=== PATIENT | male | born 1955 | race African-American/Black ===

== ENCOUNTER 2019-03-13 21:20 | Inpatient (IN) | payer MEDICARE, OTHER ==
--- NOTE | 2019-03-13 21:36 | ER Document Report ---
ED General - General Chief Complaint: Respiratory Distress Stated Complaint: RESPIRATORY DISTRESS Time Seen by Provider: 03/13/19 21:33 Primary Care Provider: KAVYA ROWLAND DOC [NO LOCAL MD] - Follow up as needed Information source: Patient TRAVEL OUTSIDE OF THE [place] IN LAST 30 DAYS: No - Related Data Allergies/Adverse Reactions: No Known Allergies Allergy (Unverified 03/13/19 21:38) Past Medical History - Social History Smoking Status: Current Every Day Smoker Family History: Reviewed & Not Pertinent Physical Exam - Vital signs Vitals: Resp Pulse Ox 20 100 03/13/19 21:20 03/13/19 21:20 Interpretation: Hypertensive - Notes Notes: Reported by paramedics with a complaint of shortness of breath is been going on for the past several days he is a nonproductive cough but no fevers chest pain nausea vomiting or abdominal pain. He has been compliant with medications through his family doctor about 3 weeks ago and blood pressure was elevated and increase his medications. When medics arrived he was in atrial fibrillation with rapid ventricular rate and a markedly elevated blood pressure. Given sublingual nitroglycerin and on a nitroglycerin drip with improvement of his blood pressure so they stopped the drip. However on arrival in emergency department blood pressure still elevated. Is currently on CPAP much more comfortable. They report his O2 sats were 88% in the field however later during hospital stay patient reports that he has had a cough productive of yellow sputum with occasional blood specks for the past week he is also had some orthopnea Past medical history sent for hypertension and CHF he has no coronary artery disease or elevated cholesterol social history does smoke and drink Review of systems pertinent positives and negatives in HPI otherwise all the systems were reviewed and acutely negative PHYSICIAN EXAM -vital signs are noted triage note and note from triage reviewed GENERAL: Well-appearing, well-nourished and in __no acute distress actually looks very comfortable right now is able to talk in full sentences____ HEAD: Atraumatic, normocephalic. EYES: Pupils equal round and reactive to light, extraocular movements intact, sclera anicteric, conjunctiva are normal. ENT: nares patent, oropharynx clear without exudates. Moist mucous membranes. NECK: supple without lymphadenopathy LUNGS: Breath sounds revealed crackles to the apices. HEART: Rapid and irregular he does have JVD at 30 degrees ABDOMEN: Soft, nontender, normoactive bowel sounds. EXTREMITIES: No deformity, +3 edema to the knees with no palpable cords NEUROLOGICAL: No focal neurological deficits. Moves all extremities spontaneously and on command. PSYCH: Normal mood, normal affect. SKIN: Warm, Dry, normal turgor, no rashes or lesions noted. BACK-nontender in the midline Differential diagnosis CHF hypertensive urgency ischemia Course - Re-evaluation Re-evalutation: 03/13/19 23:55 ED 03/14/19 01:38 ED we get the patient on a BiPAP. His blood pressure was markedly elevated and so he was started on nitroglycerin drip and titrated improvement of his blood pressure. He was given Lasix and enalapril for possible CHF. He did diurese about a liter of fluid and seem to be improving. Urine is x-ray blood cultures were obtained he was started on broad-spectrum antibiotics for possible pneumonia he had no episodes of chest pain. Been able to wean him off the BiPAP and placed him on nasal cannula his lungs have improved and is resting more comfortably. Heart rate is still tachycardic and still remains in atrial fibrillation 03/14/19 01:39 Medical decision making patient presents emerge department with shortness of breath clinically on arrival he appears to have CHF and he does have an elevated BNP however we do not have any old laboratory studies. However 6 x-ray appeared to be more consistent with pneumonia and reports a history of a productive cough with occasional specks of blood suggesting pneumonia. Patient was in acute respiratory failure on arrival has improved significantly but will need admission to the hospital. Consulted the ice rink attendant Dictate 1 dictation was done using voice recognition software. There may be some grammatical errors which are unintentional 03/14/19 01:51 Addendum patient has been seen by the ice rink attendant they report patient is markedly improved and feel the patient can probably be sent to a stepdown unit. Patient is only on 5 mcg of nitroglycerin glycerin but will attempt to stop the nitroglycerin to control his blood pressure with EILEEN inhibitor. I did reconsult the hospitalist and increased with the patient if his blood pressure remained stable - Vital Signs Vital signs: Temp Pulse Resp BP Pulse Ox 97.9 F 108 H 21 H 141/94 H 96 03/13/19 23:16 03/14/19 01:25 03/14/19 01:25 03/14/19 01:25 03/14/19 01:25 - Laboratory Result Diagrams: 03/13/19 21:35 03/13/19 21:35 Laboratory results interpreted by me: 03/13/19 03/13/19 03/13/19 21:35 21:35 21:35 RBC 4.24 L MCV 98 H RDW 14.6 H Creatinine 1.72 H Est GFR ( Amer) 49 L Est GFR (MDRD) Non-Af 40 L Glucose 156 H AST 62 H NT-Pro-B Natriuret Pep TSH 5.33 H Urine Protein Urine Urobilinogen Ur Leukocyte Esterase 03/13/19 03/13/19 21:35 22:25 RBC MCV RDW Creatinine Est GFR ( Amer) Est GFR (MDRD) Non-Af Glucose AST NT-Pro-B Natriuret Pep 2110 H TSH Urine Protein 30 H Urine Urobilinogen 4.0 H Ur Leukocyte Esterase MODERATE H Troponin was noted repeat troponin has decreased slightly. TSH was elevated but no old labs for comparison - Diagnostic Test Radiology reviewed: Reports reviewed Radiology results interpreted by me: 03/14/19 01:38 Reviewed the x-ray report. Appears to be more consistent with pneumonia than HF than CHF - EKG Interpretation by Me Additional EKG results interpreted by me: 03/13/19 23:55 Initial EKG read by me shows atrial fibrillation with rapid ventricular rate. There is a left axis deviation there is some baseline artifact as well as some LVH with strain. EKG still shows atrial fibrillation with rapid ventricular rate and LVH with strain QT interval is prolonged on both EKGs although EKGs for comparison Critical Care Note - Critical Care Note Total time excluding time spent on procedures (mins): 75 Comments: Patient presented with respiratory failure and severe hypertension. He was managed on BiPAP. With IV nitroglycerin and serial exams and multiple medical interventions Discharge - Discharge Clinical Impression: Hypertensive crisis, unspecified Respiratory failure Qualifiers: Chronicity: acute Respiratory failure complication: hypoxia Qualified Code(s): J96.01 - Acute respiratory failure with hypoxia Congestive heart failure Qualifiers: Heart failure type: unspecified Heart failure chronicity: acute on chronic Qualified Code(s): I50.9 - Heart failure, unspecified Pneumonia Qualifiers: Aspiration pneumonia type: unspecified Condition: Good Disposition: ADMITTED INPATIENT Admitting Provider: Antonia (Hospitalist) Unit Admitted: IMCU Referrals: [facility],SCREENING DOC [NO LOCAL MD] - Follow up as needed
[2019-03-13] MEDS ORDERED: ENALAPRILAT DIHYDRATE INJ/PF 1.25 MG/1 ML SDV IV ONE (21:44)
[2019-03-13] MEDS ORDERED: NITROGLYCERIN/D5W 50 MG/250 ML RTUINJ IV PRN (21:45)
[2019-03-13] MEDS ORDERED: FUROSEMIDE INJ/PF 20 MG/2 ML SDV IV ONE (21:46)
[2019-03-13 21:51] LABS: ABSOLUTE EOSINOPHILS # (AUTO) 0.2 10^3/uL (0.0-0.6); ABSOLUTE LYMPHOCYTES (AUTO) 1.2 10^3/uL (0.5-4.7); ABSOLUTE MONOCYTES (AUTO) 0.6 10^3/uL (0.1-1.4); ABSOLUTE NEUT (AUTO) 4.3 10^3/uL (1.7-8.2); BASOPHILS % (AUTO) 0.7 % (0-2); EOSINOPHILS % (AUTO) 2.9 % (0-6); HEMATOCRIT 41.5 % (37.9-51.0); LYMPHOCYTES % (AUTO) 18.4 % (13-45); MEAN CORPUSCULAR HEMOGLOBIN 33.1 pg (27.0-33.4); MEAN CORPUSCULAR HGB CONC 33.7 g/dL (32.0-36.0); MEAN CORPUSCULAR VOLUME 98 fl (80-97); MONOCYTES % (AUTO) 10.1 % (3-13); PLATELET COUNT 223 10^3/uL (150-450); RED BLOOD COUNT 4.24 10^6/uL (4.35-5.55); RED CELL DISTRIBUTION WIDTH 14.6 % (11.5-14.0); SEGMENTED NEUTROPHILS % (AUTO) 67.9 % (42-78); TOTAL CELLS COUNTED % (AUTO) 100 %; WHITE BLOOD COUNT 6.3 10^3/uL (4.0-10.5)
[2019-03-13 21:58] LABS: ALBUMIN 3.9 g/dL (3.5-5.0); ALKALINE PHOSPHATASE 75 U/L (38-126); ANION GAP 9 (5-19); ASPARTATE AMINO TRANSFERASE 62 U/L (17-59); BILIRUBIN,DIRECT 0.3 mg/dL (0.0-0.4); BILIRUBIN,TOTAL 0.9 mg/dL (0.2-1.3); BLOOD UREA NITROGEN 13 mg/dL (7-20); CALCIUM 9.8 mg/dL (8.4-10.2); CARBON DIOXIDE 28 mmol/L (22-30); CHLORIDE 104 mmol/L (98-107); GLUCOSE 156 mg/dL (75-110); POTASSIUM 4.3 mmol/L (3.6-5.0); TOTAL PROTEIN 6.8 g/dL (6.3-8.2)
--- NOTE | 2019-03-13 22:45 | RADIOLOGY REPORT (SQ) ---
EXAM DESCRIPTION: XR CHEST 1 VIEW COMPLETED DATE/TME: 03/13/2019 21:38 CLINICAL HISTORY: 63 years, Male, short of breath COMPARISON: None. NUMBER OF VIEWS: 1 TECHNIQUE: Portable chest LIMITATIONS: None. FINDINGS: Cardiomegaly. Patchy bibasilar airspace opacities. No pneumothorax IMPRESSION: Bibasilar infiltrates copyright 2010 [employer] [facility] [employer]- All Rights Reserved
[2019-03-13 22:50] LABS: APPEARANCE,URINE CLEAR; BILIRUBIN,URINE NEGATIVE (NEGATIVE); COLOR,URINE YELLOW; GLUCOSE, URINE NEGATIVE (NEGATIVE); KETONES,URINE NEGATIVE (NEGATIVE); LEUKOCYTE ESTERASE,URINE MODERATE (NEGATIVE); NITRITE,URINE NEGATIVE (NEGATIVE); PROTEIN,URINE 30 mg/dL (NEGATIVE); URINE SPECIFIC GRAVITY 1.008
[2019-03-13] MEDS ORDERED: ACETAMINOPHEN 325 MG TABLET PO ONE (23:10)
[2019-03-13] MEDS ORDERED: AZITHROMYCIN INJ 500 MG VIAL IV ONE (23:27)
[2019-03-13] MEDS ORDERED: CEFTRIAXONE INJ 1000 MG VIAL IV ONE (23:27)
[2019-03-14] MEDS ORDERED: NITROGLYCERIN 2% OINTMENT 1 GM PACKET TP ONE ×2 (01:42→01:47)
[2019-03-14] MEDS ORDERED: ENALAPRILAT DIHYDRATE INJ/PF 1.25 MG/1 ML SDV IV ONE ×2 (01:51→01:53)
[2019-03-14] MEDS ORDERED: APIXABAN 5 MG TABLET PO ONE ×2 (02:02→02:06)
[2019-03-14] MEDS ORDERED: APIXABAN 5 MG TABLET ONE (02:25)
[2019-03-14] MEDS ORDERED: MAG HYDROX/AL HYDROX/SIMETH SUSP 30 ML UDCUP PO PRN (02:41)
[2019-03-14] MEDS ORDERED: MAGNESIUM HYDROXIDE SUSP 30 ML UDCUP PO PRN (02:41)
[2019-03-14] MEDS ORDERED: PROMETHAZINE HCL INJ 25 MG/1 ML VIAL IV PRN (02:41)
[2019-03-14] MEDS ORDERED: MORPHINE SULFATE 10 MG/ML INJ IV PRN (02:49)
[2019-03-14] MEDS ORDERED: HYDRALAZINE HCL INJ/PF 20 MG/1 ML SDV IV PRN (02:49)
[2019-03-14] MEDS ORDERED: ACETAMINOPHEN 325 MG TABLET PO PRN (02:49)
[2019-03-14] MEDS ORDERED: LEVALBUTEROL HCL NEB 0.63 MG/3 ML AMPUL NEB PRN (02:49)
[2019-03-14] MEDS ORDERED: NICOTINE 21 MG/24 HR PATCH.TD24 TD PRN (02:49)
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
[2019-03-14 05:33] LABS: CHOLESTEROL 138.12 mg/dL (0-200); TRIGLYCERIDES 76 mg/dL (<150)
[2019-03-14] MEDS: PANTOPRAZOLE SODIUM 40 MG TABLET.DR PO SCH (05:34)
[2019-03-14] MEDS: NITROGLYCERIN 2% OINTMENT 1 GM PACKET TP SCH ×4 (05:34→23:24)
[2019-03-14] MEDS: BUMETANIDE INJ/PF 1 MG/4 ML SDV IV SCH ×3 (05:34→17:18)
[2019-03-14 05:46] LABS: DIRECT LDL 95 mg/dL (<100)
[2019-03-14 05:47] LABS: CREATINE KINASE MB 4.21 ng/mL (<4.55)
[2019-03-14 05:51] LABS: TROPONIN I 0.057 ng/mL
[2019-03-14] MEDS ORDERED: HEPARIN SOD (PORCINE) 5,000 UNIT/ML 1 ML VIAL SUBCUT SCH (06:00)
--- NOTE | 2019-03-14 06:23 | PDOC CONSULTATION ---
Consultation Consult Date: 03/14/19 Provider Consulted: SUSANA EUBANKS Consult reason:: Hypertension, CHF exacerbation History of Present Illness Admission Date/PCP: 03/13/19 History of Present Illness: Mr Mcdermott is a very pleasant 63yr old AA male with PMH of HTN and CHF who reports SOB with productive cough that began 3-4 days ago and has been progressively getting worse. Pt reports a mechanical fall while reaching from t he shower to get his phone greater than a week ago and believes this is when his cough started; states he slipped while reaching for his phone and denies CP/dizziness/BEE or any other symptoms related to the fall. He indicated pain to his left flank that has since improved. Pt states he has had a productive cough since his fall and the SOB and productive cough has worsened since then. Pt states he takes antihypertensives and lasix and states he has not missed any doses of medications, but does report that he had a "very salty" Thanksgiving meal 3 days ago. He states he regularly has swelling in his BLE and he will elevate his legs at night which will resolve the edema by morning. He stated he began feeling worse today and decided to call 911; denies CP/palpitations/BEE/numbness/fever/N/V/abd pain or any other associated symptoms. Per ED reports, medics arrived to find pts BP >200 systolic and started him on a nitro gtt and gave a SL nitro with improvement. Nitro was stopped in the field and then restarted in the ED when he was reported to be elevated on arrival. Pt was noted to be in Afib in the ED without reported history of Afib or irregular rhythm, he was started on Eliquis by ED based on CHADS risk. ICU was consulted for concerns with CHF exacerbation and HTN on nitro gtt. Past Medical History Cardiac Medical History: Reports: Congestive Heart Failure, Hypertension Denies: Atrial Fibrillation, Coronary Artery Disease, Myocardial Infarction Pulmonary Medical History: Denies: Asthma, Chronic Obstructive Pulmonary Disease (COPD), Respiratory Failure EENT Medical History: Denies: Cataracts, Ears - Hearing aids Neurological Medical History: Denies: Hemorrhagic CVA, Ischemic CVA, Seizures Endocrine Medical History: Reports: Obesity Denies: Diabetes Mellitus Type 1, Diabetes Mellitus Type 2, Hyperthyroidism, Hypothyroidism Renal/ Medical History: Denies: Chronic Kidney Disease, Nephrolithiasis Malignancy Medical History: Reports: None GI Medical History: Denies: Cirrhosis, Crohn's Disease, Hepatitis, Ulcerative Colitis Musculoskeltal Medical History: Denies: Arthritis, Gout Skin Medical History: Denies: Eczema, Psoriasis Psychiatric Medical History: Reports: Tobacco Dependency Denies: Alcohol Dependency, Substance Abuse Traumatic Medical History: Reports: None Hematology: Denies: Anemia, Bleeding Tendencies Infectious Medical History: Reports: None Social History Lives with: Spouse/Significant other Smoking Status: Current Every Day Smoker Electronic Cigarette use?: No Frequency of Alcohol Use: Occasional Hx Recreational Drug Use: No Drugs: None Hx Prescription Drug Abuse: No - Advance Directive Resuscitation Status: Full Code Family History Family History: denies: CAD, DM, Hypertension, Malignancy Parental Family History Reviewed: No Children Family History Reviewed: No Sibling(s) Family History Reviewed.: No Medication/Allergy Home Medications: Amlodipine Besylate [Norvasc 10 mg Tablet] 10 mg PO BID 03/14/19 Clonidine HCl [Catapres 0.2 mg Tablet] 0.2 mg PO BID 03/14/19 Lisinopril 20 mg PO DAILY 03/14/19 Allergies/Adverse Reactions: No Known Allergies Allergy (Unverified 03/13/19 21:38) Review of Systems All systems: as per PMH Physical Exam Vital Signs: Temp Pulse Resp BP Pulse Ox 97.9 F 108 H 21 H 151/106 H 97 03/14/19 01:46 03/14/19 01:25 03/14/19 01:46 03/14/19 01:46 03/14/19 01:46 Intake & Output 03/12/19 03/13/19 03/14/19 06:59 06:59 06:59 Intake Total 25 Output Total 1650 Balance -1625 Weight 111.13 kg General appearance: PRESENT: no acute distress, cooperative, obese, well- nourished Head exam: PRESENT: atraumatic, normocephalic Eye exam: PRESENT: conjunctiva pink Ear exam: PRESENT: normal external ear exam Mouth exam: PRESENT: moist Neck exam: ABSENT: tracheal deviation Respiratory exam: PRESENT: crackles - bilateral to apices. ABSENT: wheezes Cardiovascular exam: PRESENT: irregular rhythm, +S1, +S2 Pulses: PRESENT: normal radial pulses GI/Abdominal exam: PRESENT: normal bowel sounds, soft. ABSENT: distended, tenderness Extremities exam: PRESENT: other - +3 BLE to knees Neurological exam: PRESENT: alert, oriented to person, oriented to place, oriented to time, oriented to situation, CN II-XII grossly intact Psychiatric exam: PRESENT: appropriate affect Skin exam: PRESENT: dry, warm Results Laboratory Results: 03/13/19 21:35 03/13/19 21:35 03/13/19 03/13/19 03/13/19 21:35 21:35 21:35 WBC 6.3 RBC 4.24 L Hgb 14.0 Hct 41.5 MCV 98 H MCH 33.1 MCHC 33.7 RDW 14.6 H Plt Count 223 Seg Neutrophils % 67.9 Sodium 140.6 Potassium 4.3 Chloride 104 Carbon Dioxide 28 Anion Gap 9 BUN 13 Creatinine 1.72 H Est GFR ( Amer) 49 L Glucose 156 H Calcium 9.8 Total Bilirubin 0.9 AST 62 H Alkaline Phosphatase 75 Total Protein 6.8 Albumin 3.9 TSH 5.33 H Urine Color Urine Appearance Urine pH Ur Specific [place] Urine Protein Urine Glucose (UA) Urine Ketones Urine Blood Urine Nitrite Ur Leukocyte Esterase Urine WBC (Auto) Urine RBC (Auto) 03/13/19 22:25 WBC RBC Hgb Hct MCV MCH MCHC RDW Plt Count Seg Neutrophils % Sodium Potassium Chloride Carbon Dioxide Anion Gap BUN Creatinine Est GFR ( Amer) Glucose Calcium Total Bilirubin AST Alkaline Phosphatase Total Protein Albumin TSH Urine Color YELLOW Urine Appearance CLEAR Urine pH 7.0 Ur Specific [place] 1.008 Urine Protein 30 H Urine Glucose (UA) NEGATIVE Urine Ketones NEGATIVE Urine Blood NEGATIVE Urine Nitrite NEGATIVE Ur Leukocyte Esterase MODERATE H Urine WBC (Auto) 5 Urine RBC (Auto) 0 03/13/19 03/13/19 03/13/19 21:35 21:35 23:52 Troponin I 0.057 Cancelled 0.056 NT-Pro-B Natriuret Pep 2110 H Impressions: Chest X-Ray 03/13/19 21:38 IMPRESSION: Bibasilar infiltrates copyright 2011 [employer]- All Rights Reserved Assessment & Plan - Diagnosis (1) Hypertensive crisis, unspecified Is this a current diagnosis for this admission?: Yes Plan: Hold nitro gtt and transition to scheduled as well as PRN antihypertensives with goal to reduce MAP no more than 20-25% or to maintain BP 140-160 to avoid acute drop on BP (2) Acute on chronic diastolic congestive heart failure Is this a current diagnosis for this admission?: Yes Plan: Obtain echo Consider cardiology consult as 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 Continue gentle diuresis as labs allow (3) New onset atrial fibrillation Is this a current diagnosis for this admission?: Yes Plan: Consider rate controlling medication if needed - adjust BP meds as indicated Cardiology consult Started on Eliquis by ED - pt education needed (4) Acute respiratory failure with hypoxia Is this a current diagnosis for this admission?: Yes Plan: Likely secondary to CHF exacerbation and fall reported by pt Received abx in ED for possible PNA - WBC stable and lactate negative, VS stable - consider holding ABX or obtain sputum culture repeat chest Xray in the AM to monitor for progression O2 as needed to maintain sats >89% (5) Elevated troponin Plan: Likely demand mediated - has remained stable on follow up labs EKG stable without indication of acute concerns (6) Elevated TSH Is this a current diagnosis for this admission?: Yes Plan: Follow up with T4/T3 (7) Elevated serum glucose Is this a current diagnosis for this admission?: Yes Plan: Obtain HgA1C Trend labs to determine severity - Time Time Spent with patient: 30min Total Critical Time (Minutes): 30 Disposition: Pt does meet criteria for ICU admission at this time. Please call if anything changes acutely or there is any need for assistance. Thank you - Plan Summary Plan Summary: Pt does not meet criteria for ICU admission at this time, please call if his condition worsens.
[2019-03-14] MEDS: BUDESONIDE NEB 0.5 MG/2 ML AMPUL NEB SCH ×2 (08:34→20:22)
[2019-03-14] MEDS: LEVALBUTEROL HCL NEB 1.25 MG/3 ML AMPUL NEB SCH ×3 (08:34→23:50)
[2019-03-14] MEDS: IPRATROPIUM BROMIDE 0.02% NEB 0.5 MG/2.5 ML AMPUL NEB SCH ×3 (08:34→23:50)
[2019-03-14] MEDS ORDERED: DILTIAZEM HCL INJ 25 MG/5 ML VIAL IV PRN (09:05)
[2019-03-14] MEDS ORDERED: DILTIAZEM HCL 30 MG TABLET PO ONE (09:30)
[2019-03-14] MEDS ORDERED: CLOPIDOGREL BISULFATE 75 MG TABLET PO SCH (10:00)
[2019-03-14] MEDS ORDERED: METOPROLOL SUCCINATE 50 MG TAB.SR.24H PO SCH (10:00)
[2019-03-14] MEDS ORDERED: METOPROLOL TARTRATE 50 MG TABLET PO SCH (10:00)
[2019-03-14] MEDS ORDERED: DOCUSATE SODIUM 100 MG CAPSULE PO SCH (10:00)
[2019-03-14] MEDS: LOSARTAN POTASSIUM 50 MG TABLET PO SCH ×2 (10:15→21:45)
[2019-03-14] MEDS: LEVOFLOXACIN 750 MG TABLET PO SCH (10:15)
[2019-03-14] MEDS: APIXABAN 5 MG TABLET PO SCH ×2 (10:16→17:17)
[2019-03-14 11:00] LABS: CREATINE KINASE MB 4.32 ng/mL (<4.55); TROPONIN I 0.053 ng/mL
[2019-03-14] MEDS ORDERED: DILTIAZEM HCL 30 MG TABLET PO SCH (12:00)
--- NOTE | 2019-03-14 12:24 | EKG REPORT ---
SEVERITY:- ABNORMAL ECG - ATRIAL FIBRILLATION, V-RATE 88-150 PROBABLE LVH WITH SECONDARY REPOL ABNRM BORDERLINE PROLONGED QT INTERVAL : Confirmed by: Liliana Conrad 14-Mar-2019 12:23:50
--- NOTE | 2019-03-14 12:24 | EKG REPORT ---
SEVERITY:- ABNORMAL ECG - ATRIAL FIBRILLATION, V-RATE 72-127 PAIRED VENTRICULAR PREMATURE COMPLEXES LEFT AXIS DEVIATION LVH WITH SECONDARY REPOLARIZATION ABNORMALITY : Confirmed by: Liliana Conrad 14-Mar-2019 12:24:07
--- NOTE | 2019-03-14 15:41 | PDOC PROGRESS REPORT ---
Subjective Progress Note for:: 03/14/19 Subjective:: Patient is sitting in the chair resting comfortably. He does not appreciate any fast heart rate. His only complaint is that of constipation. Reason For Visit: ACUTE HYPERTENSIVE CRISIS, ACUTE ON CHRONIC Physical Exam Vital Signs: Temp Pulse Resp BP Pulse Ox 97.8 F 92 16 136/83 H 94 03/14/19 07:57 03/14/19 14:00 03/14/19 08:35 03/14/19 07:57 03/14/19 08:35 Intake & Output 03/13/19 03/14/19 03/15/19 06:59 06:59 06:59 Intake Total 610 Output Total 1650 Balance -1040 Weight 115.3 kg General appearance: PRESENT: no acute distress, cooperative, well-developed, other - Sitting comfortably in the chair with nasal cannula in place Head exam: PRESENT: atraumatic, normocephalic Eye exam: PRESENT: conjunctiva pink. ABSENT: scleral icterus Ear exam: PRESENT: normal external ear exam. ABSENT: bleeding, drainage Mouth exam: PRESENT: moist, tongue midline Teeth exam: PRESENT: poor dentation Respiratory exam: PRESENT: clear to auscultation howard, symmetrical, unlabored. ABSENT: rales, rhonchi, tachypnea, wheezes Cardiovascular exam: PRESENT: irregular rhythm, tachycardia GI/Abdominal exam: PRESENT: normal bowel sounds, soft. ABSENT: distended, tenderness Rectal exam: PRESENT: deferred Musculoskeletal exam: PRESENT: ambulatory, deformity - Left arm and hand. Congenital defect. Scars from multiple surgeries in the upper arm. Contracted fingers. Neurological exam: PRESENT: alert, awake, oriented to person, oriented to place, oriented to situation, CN II-XII grossly intact Psychiatric exam: PRESENT: appropriate affect, normal mood. ABSENT: agitated, anxious Focused psych exam: ABSENT: delusional, restlessness Skin exam: PRESENT: dry, warm, other - Slight ulcerated areas on the knuckles of the left hand. From pressure from the underlying bones.. ABSENT: rash Results Laboratory Results: 03/13/19 21:35 03/13/19 21:35 03/13/19 03/13/19 03/13/19 21:35 21:35 21:35 WBC 6.3 RBC 4.24 L Hgb 14.0 Hct 41.5 MCV 98 H MCH 33.1 MCHC 33.7 RDW 14.6 H Plt Count 223 Seg Neutrophils % 67.9 Sodium 140.6 Potassium 4.3 Chloride 104 Carbon Dioxide 28 Anion Gap 9 BUN 13 Creatinine 1.72 H Est GFR ( Amer) 49 L Glucose 156 H Calcium 9.8 Total Bilirubin 0.9 AST 62 H Alkaline Phosphatase 75 Total Protein 6.8 Albumin 3.9 Triglycerides Cholesterol LDL Cholesterol Direct VLDL Cholesterol HDL Cholesterol TSH 5.33 H Free T3 pg/mL Urine Color Urine Appearance Urine pH Ur Specific [place] Urine Protein Urine Glucose (UA) Urine Ketones Urine Blood Urine Nitrite Ur Leukocyte Esterase Urine WBC (Auto) Urine RBC (Auto) 03/13/19 03/14/19 03/14/19 22:25 04:13 04:13 WBC RBC Hgb Hct MCV MCH MCHC RDW Plt Count Seg Neutrophils % Sodium Potassium Chloride Carbon Dioxide Anion Gap BUN Creatinine Est GFR ( Amer) Glucose Calcium Total Bilirubin AST Alkaline Phosphatase Total Protein Albumin Triglycerides 76 Cholesterol 138.12 LDL Cholesterol Direct 95 VLDL Cholesterol 15.0 HDL Cholesterol 39 L TSH Free T3 pg/mL 3.76 Urine Color YELLOW Urine Appearance CLEAR Urine pH 7.0 Ur Specific [place] 1.008 Urine Protein 30 H Urine Glucose (UA) NEGATIVE Urine Ketones NEGATIVE Urine Blood NEGATIVE Urine Nitrite NEGATIVE Ur Leukocyte Esterase MODERATE H Urine WBC (Auto) 5 Urine RBC (Auto) 0 03/13/19 03/13/19 03/13/19 21:35 21:35 23:52 Creatine Kinase CK-MB (CK-2) Troponin I 0.057 Cancelled 0.056 NT-Pro-B Natriuret Pep 2110 H 03/14/19 03/14/19 03/14/19 04:13 04:13 10:20 Creatine Kinase 391 H 324 H CK-MB (CK-2) 4.21 Troponin I 0.057 NT-Pro-B Natriuret Pep 03/14/19 10:20 Creatine Kinase CK-MB (CK-2) 4.32 Troponin I 0.053 NT-Pro-B Natriuret Pep Impressions: Chest X-Ray 03/13/19 21:38 IMPRESSION: Bibasilar infiltrates copyright 2010 [employer]- All Rights Reserved Assessment and Plan - Diagnosis (1) Hypertensive crisis, unspecified Is this a current diagnosis for this admission?: Yes Plan: 03/14/2019-the patient's blood pressure is improved but still not normal. I have completed his medication reconciliation and with the resumption of his old medications I expect his blood pressure to normalize. (2) Acute respiratory failure with hypoxia Is this a current diagnosis for this admission?: Yes Plan: 03/14/2019-the patient does have an underlying history of COPD however the congestive heart failure probably has a larger component in the respiratory failure. The patient is much better today. Continue supplemental oxygen as needed. We will try and wean to room air. (3) Acute on chronic diastolic congestive heart failure Is this a current diagnosis for this admission?: Yes Plan: 03/14/2019-the patient is on IV Bumex and metoprolol as well as lisinopril. We will continue to monitor his intake and output. He is breathing much better today. We will likely begin to decrease his Bumex based on his intake and output as well as his (4) Elevated TSH Is this a current diagnosis for this admission?: Yes Plan: 03/14/2019-the patient's TSH is slightly elevated. With his new onset atrial fibrillation I will hold off on any thyroid replacement. He certainly can have sick euthyroid syndrome. (5) Elevated serum glucose Is this a current diagnosis for this admission?: Yes Plan: 03/14/2019-the elevated glucose could certainly be a physiologic response to the stress of his illness. His hemoglobin A1c was 6.2. There is no diagnosis of diabetes but we will continue to monitor his glucose. (6) COPD (chronic obstructive pulmonary disease) with acute bronchitis Is this a current diagnosis for this admission?: Yes Plan: The patient will be on Xopenex with ipratropium nebulizer treatments. He is also receiving budesonide by nebulizer. As he improves we will wean from the nebulizers and consider combination inhaler therapy. He is on antibiotics for presumed bronchitis. If there is no clinical evidence to support this then it will be discontinued. (7) New onset atrial fibrillation Is this a current diagnosis for this admission?: Yes Plan: 03/14/2019-anticoagulation with apixaban. Metoprolol has been instituted for rate control. There is an as needed dose of IV Lopressor if required. Continue to monitor on telemetry. - Plan Summary Summary: Patient will be admitted to [facility] on the congestive heart failure protocol. He will receive routine supportive and symptomatic cares. He will be treated with nitroglycerin 2% ointment 1 g applied every 6 hours. He will be started on appropriate therapy for diastolic congestive heart failure including an ARB and a beta-samantha as well as a diuretic. Initially he will receive IV diuresis utilizing Bumex 1 g IV every 6 hours. Hemoglobin A1c, thyroid profile and lipid profile will be obtained with appropriate treatment initiated after lab results are available. He will also use morphine sulfate 2 mg IV nightly hour as needed for severe dyspnea. Smoking cessation has been advised and counseled briefly at the bedside. A nicotine replacement patch is available for the patient's use, if he desires. An echocardiogram will be obtained. Daily CBCs, metabolic profiles and magnesium levels will be followed as part of managing the patient's care. Patient will be treated with an aggressive pulmonary toilet utilizing Xopenex, Atrovent and Pulmicort. He will receive supplemental oxygen utilizing BiPAP initially as required maintaining adequate O2 saturation in the 90 - 94% range. His O2 sats were monitored closely throughout his hospital course. Patient will be good with Levaquin on an empiric basis. Patient will be treated with Eliquis 5 mg p.o. twice daily for embolic protection due to his new onset atrial fibrillation - Time Time Spent with patient: 15-24 minutes Medications reviewed and adjusted accordingly: Yes Anticipated discharge: Home
[2019-03-14] MEDS ORDERED: METOPROLOL TARTRATE PF/INJ 5 MG/5 ML SDV IV PRN (15:42)
[2019-03-14] MEDS ORDERED: POLYETHYLENE GLYCOL 3350 POWDER 17 GM/1 PACKET PO ONE (17:00)
[2019-03-14] MEDS ORDERED: METOPROLOL TARTRATE 50 MG TABLET PO ONE (17:00)
[2019-03-14 17:01] LABS: CREATINE KINASE MB 4.5 ng/mL (<4.55); TROPONIN I 0.057 ng/mL
[2019-03-14] MEDS: DOCUSATE SODIUM 100 MG CAPSULE PO SCH (17:17)
[2019-03-14] MEDS: METOPROLOL TARTRATE 50 MG TABLET PO SCH (21:45)
[2019-03-15] MEDS: NITROGLYCERIN 2% OINTMENT 1 GM PACKET TP SCH ×2 (05:21→12:37)
[2019-03-15] MEDS: PANTOPRAZOLE SODIUM 40 MG TABLET.DR PO SCH (05:21)
[2019-03-15 06:27] LABS: ABSOLUTE BASOPHILS # (AUTO) 0.1 10^3/uL (0.0-0.2); ABSOLUTE EOSINOPHILS # (AUTO) 0.1 10^3/uL (0.0-0.6); ABSOLUTE LYMPHOCYTES (AUTO) 1.2 10^3/uL (0.5-4.7); ABSOLUTE MONOCYTES (AUTO) 0.9 10^3/uL (0.1-1.4); ABSOLUTE NEUT (AUTO) 4.3 10^3/uL (1.7-8.2); BASOPHILS % (AUTO) 0.9 % (0-2); EOSINOPHILS % (AUTO) 2.1 % (0-6); HEMATOCRIT 42.6 % (37.9-51.0); HEMOGLOBIN 14.4 g/dL (13.5-17.0); LYMPHOCYTES % (AUTO) 18.7 % (13-45); MEAN CORPUSCULAR HEMOGLOBIN 32.9 pg (27.0-33.4); MEAN CORPUSCULAR HGB CONC 33.9 g/dL (32.0-36.0); MEAN CORPUSCULAR VOLUME 97 fl (80-97); MONOCYTES % (AUTO) 13.4 % (3-13); PLATELET COUNT 245 10^3/uL (150-450); RED BLOOD COUNT 4.38 10^6/uL (4.35-5.55); RED CELL DISTRIBUTION WIDTH 14.6 % (11.5-14.0); SEGMENTED NEUTROPHILS % (AUTO) 64.9 % (42-78); TOTAL CELLS COUNTED % (AUTO) 100 %; WHITE BLOOD COUNT 6.6 10^3/uL (4.0-10.5)
[2019-03-15 06:42] LABS: ANION GAP 8 (5-19); BLOOD UREA NITROGEN 15 mg/dL (7-20); CALCIUM 9.5 mg/dL (8.4-10.2); CARBON DIOXIDE 26 mmol/L (22-30); CHLORIDE 102 mmol/L (98-107); GLUCOSE 110 mg/dL (75-110); POTASSIUM 4.3 mmol/L (3.6-5.0)
[2019-03-15] MEDS: LEVALBUTEROL HCL NEB 1.25 MG/3 ML AMPUL NEB SCH ×2 (07:49→16:01)
[2019-03-15] MEDS: BUDESONIDE NEB 0.5 MG/2 ML AMPUL NEB SCH (07:49)
[2019-03-15] MEDS: IPRATROPIUM BROMIDE 0.02% NEB 0.5 MG/2.5 ML AMPUL NEB SCH ×2 (07:49→16:01)
[2019-03-15] MEDS: DOCUSATE SODIUM 100 MG CAPSULE PO SCH (09:52)
[2019-03-15] MEDS: METOPROLOL TARTRATE 50 MG TABLET PO SCH (09:52)
[2019-03-15] MEDS: LEVOFLOXACIN 750 MG TABLET PO SCH (09:52)
[2019-03-15] MEDS: APIXABAN 5 MG TABLET PO SCH (09:53)
[2019-03-15] MEDS: LOSARTAN POTASSIUM 50 MG TABLET PO SCH (09:53)
[2019-03-15] MEDS ORDERED: AMLODIPINE BESYLATE 10 MG TABLET PO SCH (10:00)
[2019-03-15] MEDS ORDERED: POLYETHYLENE GLYCOL 3350 POWDER 17 GM/1 PACKET PO SCH (10:00)
[2019-03-15] MEDS ORDERED: LISINOPRIL 10 MG TABLET PO SCH (10:00)
--- NOTE | 2019-03-15 15:19 | PDOC DISCHARGE SUMMARY ---
Impression - Admit/DC Date/PCP Admission Date/Primary Care Provider: 03/14/19 02:23 YISSEL RAM MD Discharge Date: 03/15/19 - Discharge Diagnosis (1) Hypertensive crisis, unspecified Is this a current diagnosis for this admission?: Yes (2) Acute respiratory failure with hypoxia Is this a current diagnosis for this admission?: Yes (3) Acute on chronic diastolic congestive heart failure Is this a current diagnosis for this admission?: Yes (4) Elevated TSH Is this a current diagnosis for this admission?: Yes (5) Elevated serum glucose Is this a current diagnosis for this admission?: Yes (6) COPD (chronic obstructive pulmonary disease) with acute bronchitis Is this a current diagnosis for this admission?: Yes (7) New onset atrial fibrillation Is this a current diagnosis for this admission?: Yes - Assessment Summary: Patient will be admitted to [facility] on the congestive heart failure protocol. He will receive routine supportive and symptomatic cares. He will be treated with nitroglycerin 2% ointment 1 g applied every 6 hours. He will be started on appropriate therapy for diastolic congestive heart failure including an ARB and a beta-samantha as well as a diuretic. Initially he will receive IV diuresis utilizing Bumex 1 g IV every 6 hours. Hemoglobin A1c, thyroid profile and lipid profile will be obtained with appropriate treatment initiated after lab results are available. He will also use morphine sulfate 2 mg IV nightly hour as needed for severe dyspnea. Smoking cessation has been advised and counseled briefly at the bedside. A nicotine replacement patch is available for the patient's use, if he desires. An echocardiogram will be obtained. Daily CBCs, metabolic profiles and magnesium levels will be followed as part of managing the patient's care. Patient will be treated with an aggressive pulmonary toilet utilizing Xopenex, Atrovent and Pulmicort. He will receive supplemental oxygen utilizing BiPAP initially as required maintaining adequate O2 saturation in the 90 - 94% range. His O2 sats were monitored closely throughout his hospital course. Patient will be good with Levaquin on an empiric basis. Patient will be treated with Eliquis 5 mg p.o. twice daily for embolic protection due to his new onset atrial fibrillation - Additional Information Resuscitation Status: Full Code Discharge Diet: Cardiac Discharge Activity: Activity As Tolerated, Balance Activity w/Rest, Weigh Daily Referrals: [facility] [Provider Group] - 03/22/19 10:00 am CRISTOBAL SHEARER MD [ACTIVE STAFF] - (`) Prescriptions: Apixaban [Eliquis 5 mg Tablet] 5 mg PO BID 15 Days #30 tablet Levofloxacin [Levaquin 750 mg Tablet] 750 mg PO DAILY 7 Days #7 tablet Losartan/Hydrochlorothiazide [Losartan-Hctz 100-25 mg Tab] 1 each PO DAILY 15 Days #15 tablet Metoprolol Succinate 100 mg PO BID 14 Days #28 tab.er.24h Budesonide/Formoterol Fumarate [Symbicort Hfa 80-4.5 Mcg Inhaler 6.9 gm] 2 puff IH BID #1 inhaler Home Medications: Albuterol Sulfate [Proair HFA Inhalation Aerosol 8.5 gm MDI] 400 puff IH Q4HP PRN 03/14/19 Amlodipine Besylate [Norvasc 10 mg Tablet] 10 mg PO DAILY 03/14/19 Clonidine HCl [Catapres 0.2 mg Tablet] 0.2 mg PO BID 03/14/19 Apixaban [Eliquis 5 mg Tablet] 5 mg PO BID 15 Days #30 tablet 03/15/19 Budesonide/Formoterol Fumarate [Symbicort Hfa 80-4.5 Mcg Inhaler 6.9 gm] 2 puff IH BID #1 inhaler 03/15/19 Docusate Sodium [Colace 100 mg Capsule] 100 mg PO BID capsule 03/15/19 Levofloxacin [Levaquin 750 mg Tablet] 750 mg PO DAILY 7 Days #7 tablet 03/15/19 Losartan/Hydrochlorothiazide [Losartan-Hctz 100-25 mg Tab] 1 each PO DAILY 15 Days #15 tablet 03/15/19 Metoprolol Succinate 100 mg PO BID 14 Days #28 tab.er.24h 03/15/19 Polyethylene Glycol 3350 [Miralax Powder 17 gm/Packet] 17 gm PO DAILY powd.pack 03/15/19 History of Present Illiness History of Present Illness: ROCKY BARNES is a 63 year old male who presented to the emergency department with a primary complaint of dyspnea. It has been progressive to the point where he could not breathe. He does admit to coughing up small amounts of yellow sputum. He does not have a history of atrial fibrillation but when EMS arrived at the home he was in atrial fibrillation. At that time he had a markedly elevated blood pressure. His chest x-ray showed possible airspace disease bilat eral bases. He did not have a white count. Because of his hypotension he was referred to the hospital service for admission. Hospital Course Hospital Course: The patient had a fairly unremarkable hospital course. With the use of metoprolol as well as several other medications his heart rate and blood pressure more controlled. We do not want to drop his blood pressure too precipitously. He also was placed on antibiotic therapy as well as nebulizers. Within 24 hours he was on room air. With his heart rate under good control and his blood pressure significantly improved as well as no need for supplemental oxygen the patient will be discharged home. Physical Exam Vital Signs: Temp Pulse Resp BP Pulse Ox 97.6 F 95 19 156/90 H 99 03/15/19 11:54 03/15/19 14:00 03/15/19 11:54 03/15/19 11:54 03/15/19 11:54 Intake & Output 03/14/19 03/15/19 03/16/19 06:59 06:59 06:59 Intake Total 610 2020 720 Output Total 1650 0 Balance -1040 2020 720 Weight 115.3 kg 110.8 kg General appearance: PRESENT: no acute distress, cooperative, well-developed Head exam: PRESENT: atraumatic, normocephalic Respiratory exam: PRESENT: rales - Faint at bases, symmetrical, unlabored. ABS ENT: prolonged expiratory phas, rhonchi, stridor, tachypnea, wheezes Cardiovascular exam: PRESENT: irregular rhythm GI/Abdominal exam: PRESENT: normal bowel sounds, soft. ABSENT: distended, tenderness Musculoskeletal exam: PRESENT: ambulatory, normal inspection. ABSENT: deformity Neurological exam: PRESENT: alert, awake, oriented to person, oriented to place, oriented to time, oriented to situation, CN II-XII grossly intact Psychiatric exam: PRESENT: appropriate affect. ABSENT: agitated, anxious Results Laboratory Results: WBC 6.6 10^3/uL (4.0-10.5) 03/15/19 05:41 RBC 4.38 10^6/uL (4.35-5.55) 03/15/19 05:41 Hgb 14.4 g/dL (13.5-17.0) 03/15/19 05:41 Hct 42.6 % (37.9-51.0) 03/15/19 05:41 MCV 97 fl (80-97) 03/15/19 05:41 MCH 32.9 pg (27.0-33.4) 03/15/19 05:41 MCHC 33.9 g/dL (32.0-36.0) 03/15/19 05:41 RDW 14.6 % (11.5-14.0) H 03/15/19 05:41 Plt Count 245 10^3/uL (150-450) 03/15/19 05:41 Lymph % (Auto) 18.7 % (13-45) 03/15/19 05:41 [place] % (Auto) 13.4 % (3-13) H 03/15/19 05:41 Eos % (Auto) 2.1 % (0-6) 03/15/19 05:41 Baso % (Auto) 0.9 % (0-2) 03/15/19 05:41 Absolute Neuts (auto) 4.3 10^3/uL (1.7-8.2) 03/15/19 05:41 Absolute Lymphs (auto) 1.2 10^3/uL (0.5-4.7) 03/15/19 05:41 Absolute Monos (auto) 0.9 10^3/uL (0.1-1.4) 03/15/19 05:41 Absolute Eos (auto) 0.1 10^3/uL (0.0-0.6) 03/15/19 05:41 Absolute Basos (auto) 0.1 10^3/uL (0.0-0.2) 03/15/19 05:41 Seg Neutrophils % 64.9 % (42-78) 03/15/19 05:41 Sodium 136.4 mmol/L (137-145) L 03/15/19 05:41 Potassium 4.3 mmol/L (3.6-5.0) 03/15/19 05:41 Chloride 102 mmol/L (98-107) 03/15/19 05:41 Carbon Dioxide 26 mmol/L (22-30) 03/15/19 05:41 Anion Gap 8 (5-19) 03/15/19 05:41 BUN 15 mg/dL (7-20) 03/15/19 05:41 Creatinine 1.59 mg/dL (0.52-1.25) H 03/15/19 05:41 Est GFR ( Amer) 53 (>60) L 03/15/19 05:41 Est GFR (MDRD) Non-Af 44 (>60) L 03/15/19 05:41 Glucose 110 mg/dL (75-110) 03/15/19 05:41 Hemoglobin A1c % 6.2 % (4.7-6.0) H 03/14/19 04:13 Lactic Acid (Sepsis) 1.6 mmol/L (0.7-2.1) 03/13/19 21:35 Calcium 9.5 mg/dL (8.4-10.2) 03/15/19 05:41 Magnesium 2.2 mg/dL (1.6-2.3) 03/15/19 05:41 Total Bilirubin 0.9 mg/dL (0.2-1.3) 03/13/19 21:35 Direct Bilirubin 0.3 mg/dL (0.0-0.4) 03/13/19 21:35 Neonat Total Bilirubin Not Reportable 03/13/19 21:35 Neonat Direct Bilirubin Not Reportable 03/13/19 21:35 Neonat Indirect Bili Not Reportable 03/13/19 21:35 AST 62 U/L (17-59) H 03/13/19 21:35 ALT 121 U/L (<50) 03/13/19 21:35 Alkaline Phosphatase 75 U/L (38-126) 03/13/19 21:35 Creatine Kinase 325 U/L (55-170) H 03/14/19 16:10 CK-MB (CK-2) 4.50 ng/mL (<4.55) 03/14/19 16:00 Troponin I 0.057 ng/mL 03/14/19 16:00 NT-Pro-B Natriuret Pep 2110 pg/mL (<125) H 03/13/19 21:35 Total Protein 6.8 g/dL (6.3-8.2) 03/13/19 21:35 Albumin 3.9 g/dL (3.5-5.0) 03/13/19 21:35 Triglycerides 76 mg/dL (<150) 03/14/19 04:13 Cholesterol 138.12 mg/dL (0-200) 03/14/19 04:13 LDL Cholesterol Direct 95 mg/dL (<100) 03/14/19 04:13 VLDL Cholesterol 15.0 mg/dL (10-31) 03/14/19 04:13 HDL Cholesterol 39 mg/dL (>40) L 03/14/19 04:13 TSH 5.33 uIU/mL (0.47-4.68) H 03/13/19 21:35 Free T3 pg/mL 3.76 pg/mL (2.77-5.27) 03/14/19 04:13 Urine Color YELLOW 03/13/19 22:25 Urine Appearance CLEAR 03/13/19 22:25 Urine pH 7.0 (5.0-9.0) 03/13/19 22:25 Ur Specific [place] 1.008 03/13/19 22:25 Urine Protein 30 mg/dL (NEGATIVE) H 03/13/19 22:25 Urine Glucose (UA) NEGATIVE mg/dL (NEGATIVE) 03/13/19 22:25 Urine Ketones NEGATIVE mg/dL (NEGATIVE) 03/13/19 22:25 Urine Blood NEGATIVE (NEGATIVE) 03/13/19 22:25 Urine Nitrite NEGATIVE (NEGATIVE) 03/13/19 22:25 Urine Bilirubin NEGATIVE (NEGATIVE) 03/13/19 22:25 Urine Urobilinogen 4.0 mg/dL (<2.0) H 03/13/19 22:25 Ur Leukocyte Esterase MODERATE (NEGATIVE) H 03/13/19 22:25 Urine WBC (Auto) 5 /HPF 03/13/19 22:25 Urine RBC (Auto) 0 /HPF 03/13/19 22:25 Urine Bacteria (Auto) TRACE /HPF 03/13/19 22:25 Squamous Epi Cells Auto <1 /HPF 03/13/19 22:25 Urine Mucus (Auto) RARE /LPF 03/13/19 22:25 Urine Ascorbic Acid NEGATIVE (NEGATIVE) 03/13/19 22:25 03/13/19 03/13/19 03/13/19 21:35 21:35 23:52 CK-MB (CK-2) Troponin I 0.057 Cancelled 0.056 NT-Pro-B Natriuret Pep 2110 H 03/14/19 03/14/19 03/14/19 04:13 10:20 16:00 CK-MB (CK-2) 4.21 4.32 4.50 Troponin I 0.057 0.053 0.057 NT-Pro-B Natriuret Pep Impressions: Chest X-Ray 03/13/19 21:38 IMPRESSION: Bibasilar infiltrates copyright 2010 [employer]- All Rights Reserved Plan Health Concerns: Monitoring for A. fib and possible conversion. Compliance with medication and follow-up appointments. Plan of Treatment: The patient will be discharged on several antihypertensive medications. I have also discharged on antibiotics as well as an inhaler for use until he follows up with his primary care provider. He has been referred to cardiology locally as well. He will be on anticoagulation as he is still in atrial fibrillation. Goals: Good blood pressure control, conversion or good rate control with his atrial fibrillation as well as complete resolution of his pneumonia. Time Spent: Greater than 30 Minutes Stroke Is this a Stroke Patient?: No Acute Heart Failure - Is this a Heart Failure Patient?: No
[2019-03-15 15:34] VITALS: BP 141/94
== END 2019-03-15 16:15 | disposition home or self-care (01) | DRG 304 ==
LOC: ER 21:20 → EH 03-14 02:23 → 3N 03-14 03:15
PROVIDERS: ADMIT Emergency Medicine; ATTEND Emergency Medicine
DX: I16.9 Hypertensive crisis, unspecified (principal); J96.01 Acute respiratory failure with hypoxia; I50.33 Acute on chronic diastolic (congestive) heart failure; J44.1 Chronic obstructive pulmonary disease with (acute) exacerbation; I48.91 Unspecified atrial fibrillation; I11.0 Hypertensive heart disease with heart failure; K59.00 Constipation, unspecified; F17.210 Nicotine dependence, cigarettes, uncomplicated
CPT/HCPCS: 36415; 71045; 80048; 80053; 80061; 81001; 82550; 82553; 83036; 83605; 83735; 83880; 84443; 84481; 84484; 85025; 87040; 93005; 93010; 94640; 94660; 96365; 96366; 96367; 96368; 96375; 96376; 99291; 99292; J0456; J0696; J1940; J3490

== ENCOUNTER 2019-05-11 16:02 | Emergency (ER) | payer MEDICARE ==
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
[2019-05-11 17:29] LABS: ABSOLUTE BASOPHILS # (AUTO) 0.1 10^3/uL (0.0-0.2); ABSOLUTE EOSINOPHILS # (AUTO) 0.1 10^3/uL (0.0-0.6); ABSOLUTE LYMPHOCYTES (AUTO) 1.4 10^3/uL (0.5-4.7); ABSOLUTE MONOCYTES (AUTO) 0.5 10^3/uL (0.1-1.4); ABSOLUTE NEUT (AUTO) 3.9 10^3/uL (1.7-8.2); EOSINOPHILS % (AUTO) 1.5 % (0-6); HEMATOCRIT 47.2 % (37.9-51.0); HEMOGLOBIN 16.1 g/dL (13.5-17.0); LYMPHOCYTES % (AUTO) 23.8 % (13-45); MEAN CORPUSCULAR HEMOGLOBIN 32.4 pg (27.0-33.4); MEAN CORPUSCULAR HGB CONC 34.1 g/dL (32.0-36.0); MEAN CORPUSCULAR VOLUME 95 fl (80-97); MONOCYTES % (AUTO) 9.1 % (3-13); PLATELET COUNT 207 10^3/uL (150-450); RED BLOOD COUNT 4.97 10^6/uL (4.35-5.55); RED CELL DISTRIBUTION WIDTH 14.3 % (11.5-14.0); SEGMENTED NEUTROPHILS % (AUTO) 64.6 % (42-78); TOTAL CELLS COUNTED % (AUTO) 100 %
[2019-05-11 17:37] LABS: APPEARANCE,URINE CLEAR; BILIRUBIN,URINE NEGATIVE (NEGATIVE); COLOR,URINE YELLOW; GLUCOSE, URINE NEGATIVE (NEGATIVE); KETONES,URINE NEGATIVE (NEGATIVE); PROTEIN,URINE NEGATIVE (NEGATIVE); URINE SPECIFIC GRAVITY 1.009; UROBILINOGEN,URINE NEGATIVE mg/dL (<2.0)
[2019-05-11 17:45] LABS: ALBUMIN 4.2 g/dL (3.5-5.0); ALKALINE PHOSPHATASE 58 U/L (38-126); ANION GAP 10 (5-19); ASPARTATE AMINO TRANSFERASE 18 U/L (17-59); BILIRUBIN,DIRECT 0.3 mg/dL (0.0-0.4); BILIRUBIN,TOTAL 0.5 mg/dL (0.2-1.3); BLOOD UREA NITROGEN 17 mg/dL (7-20); CARBON DIOXIDE 31 mmol/L (22-30); CHLORIDE 99 mmol/L (98-107); CREATINE KINASE 125 U/L (55-170); GLUCOSE 116 mg/dL (75-110); POTASSIUM 4.4 mmol/L (3.6-5.0); TOTAL PROTEIN 7.5 g/dL (6.3-8.2)
[2019-05-11 17:50] LABS: INTERNATIONAL RATION (INR) 1.03; PROTHROMBIN TIME 13.6 SEC (11.4-15.4)
[2019-05-11 17:51] LABS: PARTIAL THROMBOPLASTIN TIME 31.5 SEC (23.5-35.8)
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
--- NOTE | 2019-05-11 18:52 | RADIOLOGY REPORT (SQ) ---
EXAM DESCRIPTION: CT RT UPPER EXTREMITY WITH COMPLETED DATE/TIME: 05/11/2019 6:17 pm REASON FOR STUDY: severe pain with contrast if kidney function ok COMPARISON: None. TECHNIQUE: Axial imaging performed through the right upper extremity with reformatted oblique rodrigues l and oblique sagittal imaging windowed for bone and soft tissues. All CT scanners at this facility use dose modulation, iterative reconstruction, and/or weight based d osing when appropriate to reduce radiation dose to as low as reasonably achievable (ALARA). [facility]: Dose Right [facility]: CareDose [facility]: Dose Right [facility]: Teradose 4D [facility]: Smart [employer] RADIATION DOSE: CT Rad equipment meets quality standard of care and radiation dose reduction techniq ues were employed. CTDIvol: 2.6 mGy. DLP: 140 mGy-cm. mGy. LIMITATIONS: None. FINDINGS: CT scanning of the right upper extremity was performed with IV contrast. Patient was inje cted with 50 mL of Omnipaque 350 . Creatinine 1.8. Suboptimal contrast bolus for evaluation of DVT in the right arm. Grossly normal arterial enhancemen t. There is diffuse subcutaneous edema from the mid upper arm through the dorsal forearm. You would No abscess or soft tissue fluid collection. No fracture. No bony lytic or blastic lesions. Limited view of the elbow is unremarkable. IMPRESSION: Grossly normal arterial enhancement. Suboptimal contrast bolus for evaluation of deep v enous thrombosis in the right arm. Diffuse distal upper arm and forearm subcutaneous edema without well-circumscribed hematoma or absces s TECHNICAL DOCUMENTATION: JOB ID: [id number] Quality ID # [id number]: Final reports with documentation of one or more dose reduction techniques (e.g., Au tomated exposure control, adjustment of the mA and/or kV according to patient size, use of iterative reconstruction technique) 2010 [employer]- All Rights Reserved Reading location - IP/workstation name: [email or web address]
[2019-05-11 20:16] VITALS: BP 168/87
== END 2019-05-11 20:15 | disposition home or self-care (01) ==
LOC: ER 16:02
DX: T80.1XXA Vascular complications following infusion, transfusion and therapeutic injection, initial encounter (principal); M79.601 Pain in right arm; M79.89 Other specified soft tissue disorders; I50.9 Heart failure, unspecified; I11.0 Hypertensive heart disease with heart failure; X58.XXXA Exposure to other specified factors, initial encounter; F17.200 Nicotine dependence, unspecified, uncomplicated
CPT/HCPCS: 36415; 80053; 81001; 82550; 85025; 85610; 85730; 87086; 99284

== ENCOUNTER 2019-06-12 22:20 | Emergency (ER) | payer MEDICARE ==
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
[2019-06-12 23:27] LABS: ABSOLUTE EOSINOPHILS # (AUTO) 0.1 10^3/uL (0.0-0.6); ABSOLUTE MONOCYTES (AUTO) 0.7 10^3/uL (0.1-1.4); ABSOLUTE NEUT (AUTO) 4.8 10^3/uL (1.7-8.2); MEAN CORPUSCULAR HEMOGLOBIN 32.1 pg (27.0-33.4); RED BLOOD COUNT 4.67 10^6/uL (4.35-5.55); SEGMENTED NEUTROPHILS % (AUTO) 72.9 % (42-78); TOTAL CELLS COUNTED % (AUTO) 100 %; WHITE BLOOD COUNT 6.6 10^3/uL (4.0-10.5)
[2019-06-12 23:39] LABS: ABSOLUTE BASOPHILS # (AUTO) 0.1 10^3/uL (0.0-0.2); BASOPHILS % (AUTO) 0.8 % (0-2); EOSINOPHILS % (AUTO) 1.3 % (0-6); HEMATOCRIT 43.7 % (37.9-51.0); MEAN CORPUSCULAR HGB CONC 34.4 g/dL (32.0-36.0); MEAN CORPUSCULAR VOLUME 94 fl (80-97); PLATELET COUNT 200 10^3/uL (150-450); RED CELL DISTRIBUTION WIDTH 14.5 % (11.5-14.0)
[2019-06-12 23:48] LABS: ALKALINE PHOSPHATASE 64 U/L (38-126); ANION GAP 8 (5-19); ASPARTATE AMINO TRANSFERASE 29 U/L (17-59); BILIRUBIN,DIRECT 0.3 mg/dL (0.0-0.4); BILIRUBIN,TOTAL 0.6 mg/dL (0.2-1.3); BLOOD UREA NITROGEN 15 mg/dL (7-20); CALCIUM 9.2 mg/dL (8.4-10.2); CARBON DIOXIDE 30 mmol/L (22-30); CHLORIDE 99 mmol/L (98-107); GLUCOSE 148 mg/dL (75-110); POTASSIUM 3.6 mmol/L (3.6-5.0); TOTAL PROTEIN 7.2 g/dL (6.3-8.2)
--- NOTE | 2019-06-12 23:49 | RADIOLOGY REPORT (SQ) ---
EXAM DESCRIPTION: XR CHEST 2 VIEWS COMPLETED DATE/TME: 06/12/2019 23:07 CLINICAL HISTORY: 63 years, Male, Left-sided chest pain has LifeVest COMPARISON: Prior study from 03/13/2019 NUMBER OF VIEWS: 2 TECHNIQUE: Frontal and lateral radiograph were obtained LIMITATIONS: None. FINDINGS: Cardiopericardial silhouette is enlarged. Mediastinal contours are stable. Patchy left basilar opacity is evident. No large pleural effusion or pneumothorax. IMPRESSION: Patchy left basilar opacity. Consider atelectasis or pneumonia to include aspiration. copyright 2010 [employer]- All Rights Reserved
[2019-06-13] MEDS ORDERED: ASPIRIN 81 MG TABLET, CHEWABLE PO ONE (00:54)
[2019-06-13] MEDS: NITROGLYCERIN 0.4 MG/TAB 25 TAB/BOTTLE SL PRN ×3 (00:57→01:10)
[2019-06-13] MEDS ORDERED: NITROGLYCERIN 2% OINTMENT 1 GM PACKET TP ONE (01:18)
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
[2019-06-13] MEDS ORDERED: ATORVASTATIN CALCIUM 80 MG TABLET PO ONE (02:41)
[2019-06-13] MEDS ORDERED: METOPROLOL TARTRATE PF/INJ 5 MG/5 ML SDV IV ONE ×2 (02:41→05:54)
[2019-06-13 06:41] VITALS: BP 157/79
--- NOTE | 2019-06-13 16:19 | EKG REPORT ---
SEVERITY:- ABNORMAL ECG - ATRIAL FIBRILLATION, V-RATE 69-122 LAD, CONSIDER LEFT ANTERIOR FASCICULAR BLOCK CONSIDER ANTERIOR INFARCT : Confirmed by: Whit Reddy MD 13-Jun-2019 16:18:20
--- NOTE | 2019-06-13 16:19 | EKG REPORT ---
SEVERITY:- ABNORMAL ECG - ATRIAL FIBRILLATION, V-RATE 73-116 BORDERLINE IVCD WITH LAD INFERIOR INFARCT, AGE INDETERMINATE BORDERLINE PROLONGED QT INTERVAL : Confirmed by: Whit Reddy MD 13-Jun-2019 16:18:23
== END 2019-06-13 06:52 | disposition short-term general hospital (02) ==
LOC: ER 22:20
DX: I21.4 Non-ST elevation (NSTEMI) myocardial infarction (principal); R07.9 Chest pain, unspecified; M79.602 Pain in left arm; R51 Headache; I11.0 Hypertensive heart disease with heart failure; I50.9 Heart failure, unspecified; I48.91 Unspecified atrial fibrillation; I25.10 Atherosclerotic heart disease of native coronary artery without angina pectoris; F17.210 Nicotine dependence, cigarettes, uncomplicated; Z95.811 Presence of heart assist device; Z95.5 Presence of coronary angioplasty implant and graft; Z79.01 Long term (current) use of anticoagulants; Z79.02 Long term (current) use of antithrombotics/antiplatelets; Z79.899 Other long term (current) drug therapy
CPT/HCPCS: 93005 ×2; 96376; 99291; 99292; 96374; 36415; 85025; 80053; 84484; 71046; 93010 ×2; A9270 ×3; J3490